=== PATIENT | female | born 1995 ===

== ENCOUNTER 2017-12-01 12:39 | Emergency (ER) | payer SELFPAY ==
[2017-12-01 13:44] VITALS: O2SAT 100
[2017-12-01] MEDS ORDERED: Naproxen 550 mg Tab PO STA (14:23)
--- NOTE | 2017-12-01 14:26 | C.PDOC ---
History Of Present Illness 22-year-old female, presents to the emergency department with complaints of one- week duration of fever, cough, chills and generalized headache. Patient denies rashes, nausea/vomiting, sick contact, recent travel, symptoms, change in bowel habits or any other associated symptoms. No other complaints at this time. Time Seen by Provider: 12/01/17 13:33 Chief Complaint (Nursing): Flu-like Symptoms History Per: Patient History/Exam Limitations: no limitations Onset/Duration Of Symptoms: Days Past Medical History Reviewed: Historical Data, Nursing Documentation, Vital Signs Vital Signs: Last Vital Signs Temp 99.7 F H 12/01/17 14:58 Pulse 95 H 12/01/17 14:58 Resp 18 12/01/17 14:58 BP 105/76 12/01/17 14:58 Pulse Ox 100 12/01/17 14:58 Surgical History: Appendectomy Family History: States: No Known Family Hx - Social History Hx Alcohol Use: No Hx Substance Use: No - Immunization History Hx Tetanus Toxoid Vaccination: No Hx Influenza Vaccination: No Hx Pneumococcal Vaccination: No Review Of Systems Constitutional: Positive for: Fever, Malaise. Negative for: Chills Respiratory: Positive for: Cough. Negative for: Shortness of Breath Gastrointestinal: Negative for: Vomiting Skin: Negative for: Rash Neurological: Positive for: Headache. Negative for: Weakness, Numbness, Dizziness Physical Exam - Physical Exam Appears: Non-toxic, No Acute Distress Skin: Normal Color, Warm, Dry, No Rash Head: Normacephalic Eye(s): bilateral: PERRL Nose: Normal, No Flaring, No Discharge Oral Mucosa: Moist Lips: Normal Appearing Throat: No Erythema, No Exudate Neck: Normal ROM, Trachea Midline, Supple Chest: Symmetrical Cardiovascular: Rhythm Regular, No Murmur Respiratory: Normal Breath Sounds, No Accessory Muscle Use, No Wheezing Extremity: Normal ROM Neurological/Psych: Oriented x3, Normal Speech ED Course And Treatment O2 Sat by Pulse Oximetry: 100 (RA) Pulse Ox Interpretation: Normal Progress Note: Patient treated with Tessalon and Naproxen. On reassessment, Patient is resting comfortably, tolerating PO, and is afebrile at this time. Clinical signs and symptoms are not suggestive of sepsis, meningitis, UTI, pneumonia, intra-abdominal pathology, or cellulitis. Patient will be discharge home, and instructed to follow up with his/her physician in 1-2 days without fail. Patient was instructed to return for any worsening symptoms, persistent fever, neck pain, rash, abdominal pain, or vomiting. Disposition Counseled Patient/Family Regarding: Diagnosis, Need For Followup, Rx Given - Disposition Referrals: [facility] [Outside] Disposition: HOME/ ROUTINE Disposition Time: 14:25 Condition: STABLE Additional Instructions: FOLLOW UP WITH YOUR DOCTOR/CLINIC IN 1-2 DAYS DRINK PLENTY OF FLUIDS USE MEDICATIONS NEEDED RETURN TO ER IF SYMPTOMS WORSEN Prescriptions: Benzonatate [Tessalon Perles] 100 mg PO BID PRN #15 sgl PRN Reason: Cough Naproxen 375 mg PO BID PRN #20 tablet PRN Reason: pain Instructions: Viral Syndrome (DC) Forms: [facility] (Angolan), School Excuse Print Language: SWEDISH - POA Present On Arrival: None - Clinical Impression Clinical Impression: Viral syndrome, Influenza-like illness - Scribe Statement The provider has reviewed the documentation as recorded by the Scribe (Devon Cash) All medical record entries made by the Scribe were at my direction and personally dictated by me. I have reviewed the chart and agree that the record accurately reflects my personal performance of the history, physical exam, medical decision making, and the department course for this patient. I have also personally directed, reviewed, and agree with the discharge instructions and disposition.
[2017-12-01] MEDS ORDERED: Naproxen 550 mg Tab PO ONE (14:34)
[2017-12-01 14:58] VITALS: BP 105/76; PULSE 95; RESP 18; TEMP 99.7
== END 2017-12-01 15:00 | disposition home or self-care (01) ==
LOC: C.ER 12:39
DX: J11.1 Influenza due to unidentified influenza virus with other respiratory manifestations (principal); B34.9 Viral infection, unspecified